=== PATIENT | female | born 1950 | race Caucasian/White ===

== ENCOUNTER 2021-02-08 00:46 | Emergency (ER) | payer OTHER, SELFPAY ==
[2021-02-08] VITALS (7 sets, daily range): BP systolic 118–131; BP diastolic 66–83; PULSE 76–90; RESP 12–16; TEMP 36.4–36.7; O2SAT 95–97
--- NOTE | ~2021-02-08 | XR_ITS ---
XR shoulder LT min 2V DATE: 02/08/2021 05:07 INDICATION: Left scapular and shoulder pain following seizure TECHNIQUE: 4 views COMPARISON: None FINDINGS: There is osteopenia. No fracture, dislocation, periosteal reaction or bone destruction. Nor mal alignment at the acromioclavicular and glenohumeral joints. IMPRESSION: No fracture or dislocation Reviewed, dictated and finalized at location A. IMPRESSION: No fracture or dislocation
[2021-02-08 00:54] LABS: Glucose Point of Care 129 (65-105)
--- NOTE | 2021-02-08 01:00 | ECG_ITS ---
Measurements Intervals [place] Rate: 80 P: 46 FL: 154 QRS: 39 QRSD: 92 T: 62 QT: 380 QTc: 440 Interpretive Statements SINUS RHYTHM INCOMPLETE RIGHT BUNDLE BRANCH BLOCK BORDERLINE ST-T WAVE ABNORMALITY- DIFFUSE LEADS BASELINE ARTIFACT- I, II, AVR, AVL, AVF, V4-V6 BORDERLINE ECG Electronically Signed On 02-08-2021 6:49:20 CDT by Derek Bee D.O.
--- NOTE | 2021-02-08 01:44 | PC.NURSE ---
Received call from pts boyfriend, Jadiel Lomeli (PH: [phone]), asking for update on pt. This RN informed him that we are waiting on results at this time, but I will call him back with updates.
[2021-02-08 01:52] LABS: Basophils Percent Auto 0.5 % (0.2-1.2); Immature Granulocyte Absolute 0.03 K/mm3 (0.00-0.031); Immature Granulocyte Percent A 0.7 % (0-0.5); Lymphocytes Absolute Auto 1.36 K/mm3 (0.9-3.2); Lymphocytes Percent Auto 32.8 % (18.3-44.2); Mean Corpuscular HGB Conc 33.3 g/dl (32-36); Mean Corpuscular Hemoglobin 30.6 pg (26-34); Mean Corpuscular Volume 91.7 fl (80-100); Mean Platelet Volume 10.7 fl (7.4-10.4); Monocytes Absolute Auto 0.2 K/mm3 (0.1-0.6); Monocytes Percent Auto 5.8 % (2.6-8.5); Neutrophils Absolute Auto 2.5 K/mm3 (1.3-6.7); Neutrophils Percent Auto 60.2 % (45.5-73.1); Platelet Count Result 165 k/mm3 (150-375); Red Blood Count 4.58 M/mm3 (4.2-5.4); Red Cell Distribution Width 11.9 % (11.5-14.5); White Blood Count 4.2 K/mm3 (4.5-10.0)
[2021-02-08 01:58] LABS: Albumin Level 4.6 g/dL (3.5-5.1); Alkaline Phosphatase 105 U/L (38-126); Anion Gap 15 mmol/L (8-16); Aspartate Amino Transferase 29 U/L (14-36); Bilirubin,Total 0.3 mg/dL (0.2-1.3); Blood Urea Nitrogen 16 mg/dL (7-17); Calcium 9.7 mg/dL (8.4-10.2); Carbon Dioxide 24 mmol/L (22-30); Chloride 100 mmol/L (98-107); Estimated Glomerular Filt Rate > 60; Glucose 137 mg/dL (65-105); Sodium 139 mmol/L (137-145)
[2021-02-08 02:05] LABS: Alanine Aminotransferase 22 U/L (4-35)
[2021-02-08 02:20] LABS: Add Urine Microscopic? YES; Appearance Urine Cloudy (Clear); Bilirubin Urine Negative (Negative); Blood Urine Negative (Negative); Color Urine Yellow (Yellow); Glucose Urine UA Negative (Negative); Hyaline Casts Urine 20-29 /lpf; Ketones Urine Trace mg/dL (Negative); Leukocyte Esterase Ur Negative LEU/UL (Negative); Mucus Urine Few /lpf; Nitrate Urine Negative (Negative); Protein Urine 2+ mg/dL (Negative); RBC Urine 0-2 /hpf (0-2); Specific Grav Ur 1.027 (1.001-1.035); Squamous Epithelial Cell Urine Occasional /hpf (Few); Urobilinogen Urine Negative mg/dL (<2.0); WBC Urine 0-3 /hpf
--- NOTE | 2021-02-08 02:21 | ED.GENADULT ---
HPI - General Adult General Chief complaint: Seizure Stated complaint: seizure Time Seen by Provider: 02/08/21 00:58 History of Present Illness HPI narrative: Patient is a 70-year-old female who presents the emergency department with chief complaint of seizure. The patient has history of seizures takes Klonopin and Tegretol for her seizures. The patient is in between physicians and has a new neurologist she is going to start seeing but has run out of her medications. The patient denied had a seizure at home and then has been confused post seizure. Related Data Home Medications Medication Instructions Recorded Confirmed carbamazepine 200 mg tablet 200 mg PO TID tablet 12/30/20 Allergies Allergy/AdvReac Type Severity Reaction Status Date / Time No Known Allergies Allergy Verified 02/08/21 04:46 Review of Systems Review of Systems: Narrative: A 10 system review of systems was completed on the patient and is negative except for what is stated in the HPI. Nursing and ancillary documentation was reviewed. [facility] Family History Family History Other Diabetes mellitus Family history of arthritis Family history of gout Family history of seizure disorder Hypertension Social History Social History Alcohol intake: never Exam Narrative: Exam Narrative: GENERAL: Well-appearing, well-nourished, and in no acute distress. HEAD: Normocephalic, atraumatic. EYES: PERRLA and EOMI. ENT: Nares clear, no rhinorrhea or epistaxis. Mucous membranes moist. NECK: Supple. CHEST: Clear to auscultation. No respiratory distress. HEART: Regular rate and rhythm. No murmur heard. Normal peripheral pulses. ABDOMEN: Soft, nontender, nondistended, normal active bowel sounds. EXTREMITIES: Normal range of motion. No edema. SKIN: Warm, dry, no rash. NEURO: No focal deficits. Alert and oriented x3. PSYCH: Normal mood and affect. Course Vital Signs Vital signs: Vital Signs Temperature 36.7 C 02/08/21 00:43 Pulse Rate 78 02/08/21 00:43 Respiratory Rate 16 02/08/21 00:43 Blood Pressure 131/74 02/08/21 00:43 Pulse Oximetry 95 02/08/21 00:43 Temperature 36.7 C 02/08/21 00:43 Pulse Rate 90 02/08/21 06:09 Respiratory Rate 12 02/08/21 06:09 Blood Pressure 118/83 02/08/21 06:09 Pulse Oximetry 97 02/08/21 06:09 Medical Decision Making Vital Signs Vital Signs: Vital Signs Temperature 36.7 C 02/08/21 00:43 Pulse Rate 78 02/08/21 00:43 Respiratory Rate 16 02/08/21 00:43 Blood Pressure 131/74 02/08/21 00:43 Pulse Oximetry 95 02/08/21 00:43 Temperature 36.7 C 02/08/21 00:43 Pulse Rate 90 02/08/21 06:09 Respiratory Rate 12 02/08/21 06:09 Blood Pressure 118/83 02/08/21 06:09 Pulse Oximetry 97 02/08/21 06:09 Lab Data Result diagrams: 02/08/21 01:31 02/08/21 01:31 Labs: Lab Results 02/08/21 02/08/21 02/08/21 Range/Units 00:51 01:31 01:31 WBC 4.2 L (4.5-10.0) K/mm3 RBC 4.58 (4.2-5.4) M/mm3 Hgb 14.0 (12.0-15.0) g/dL Hct 42.0 (37.0-47.0) % MCV 91.7 (80-100) fl MCH 30.6 (26-34) pg MCHC 33.3 (32-36) g/dl RDW 11.9 (11.5-14.5) % Plt Count 165 (150-375) k/mm3 MPV 10.7 H (7.4-10.4) fl Immature Gran % (Auto) 0.7 H (0-0.5) % Neut % (Auto) 60.2 (45.5-73.1) % Lymph % (Auto) 32.8 (18.3-44.2) % Loup % (Auto) 5.8 (2.6-8.5) % Eos % (Auto) 0.0 (0-4.4) % Baso % (Auto) 0.5 (0.2-1.2) % Lymph # (Auto) 1.36 (0.9-3.2) K/mm3 Loup # (Auto) 0.2 (0.1-0.6) K/mm3 Eos # (Auto) 0.0 (0-0.3) K/mm3 Baso # (Auto) 0.0 (0.0-0.1) K/mm3 Abs Immat Gran (auto) 0.03 (0.00-0.031) K/mm3 Absolute Neuts (auto) 2.5 (1.3-6.7) K/mm3 Absolute Nucleated RBC 0.0 (0.0-0.012) K/mm3 Nucleated RBC % 0.0 (0.0-0.2) % Sodium 139
--- NOTE | 2021-02-08 04:42 | PC.NURSE ---
Pt A&Ox4 at this time. Able to speak in full sentences, but speech is still slightly delayed. Pt c/o left shoulder pain and headache. BERNADINE Sky notified.
[2021-02-08] MEDS: carBAMazepine 200 MG TABLET PO (05:54)
[2021-02-08] MEDS: LORazepam (*CRX) 0.5 MG TABLET PO (06:06)
== END 2021-02-08 07:04 | disposition home or self-care (01) ==
PROVIDERS: Emergency Provider Emergency Medicine; PCP Internal Medicine Infectious Disease
DX: G40.909 Epilepsy, unspecified, not intractable, without status epilepticus (principal)
CPT/HCPCS: 36415; 51701; 73030; 80053; 81001; 82948; 85025; 93005; 96365; 99284; A9270; J0131

== ENCOUNTER 2021-02-09 18:55 | Emergency (ER) | payer OTHER, SELFPAY ==
--- NOTE | ~2021-02-09 | CT_ITS ---
EXAMINATION: CT abdomen pelvis w con INDICATION: Abdominal pain TECHNIQUE: Computed tomographic images of the abdomen and pelvis were obtained after the administrati on of 100 cc of Omnipaque 350 intravenous contrast. The dose-length product (DLP) was 331.20 mGy-cm. Automated exposure control and iterative reconstruction technique were employed. COMPARISON: None available FINDINGS: Minimal dependent atelectasis is present in the lung bases. The heart size is normal. The g allbladder is surgically absent. Punctate calcifications in an otherwise normal spleen likely represe nt healed granulomatous disease. The liver, pancreas, and adrenal glands are normal. The kidneys are unremarkable. No pathologically enlarged abdominal or pelvic lymph nodes are identified. There is no free intraperitoneal gas or evidence of bowel obstruction. There is mild lumbar spondylosis. There is a fat-containing umbilical hernia. IMPRESSION: 1. No CT correlate for the patient's symptoms. Reviewed, dictated and finalized at location A.
[2021-02-09 19:02] VITALS: BP 123/79; PULSE 115; RESP 20; TEMP 36.4; O2SAT 96
[2021-02-09 19:30] LABS: Basophils Percent Auto 0.4 % (0.2-1.2); Eosinophils Absolute Auto 0.2 K/mm3 (0-0.3); Eosinophils Percent Auto 2.6 % (0-4.4); Hemoglobin 14.5 g/dL (12.0-15.0); Immature Granulocyte Absolute 0.02 K/mm3 (0.00-0.031); Immature Granulocyte Percent A 0.3 % (0-0.5); Lymphocytes Absolute Auto 1.03 K/mm3 (0.9-3.2); Mean Corpuscular HGB Conc 34.5 g/dl (32-36); Mean Corpuscular Hemoglobin 30.8 pg (26-34); Mean Corpuscular Volume 89.2 fl (80-100); Monocytes Absolute Auto 0.4 K/mm3 (0.1-0.6); Monocytes Percent Auto 5.7 % (2.6-8.5); Neutrophils Absolute Auto 5.2 K/mm3 (1.3-6.7); Platelet Count Result 202 k/mm3 (150-375); Red Blood Count 4.71 M/mm3 (4.2-5.4); Red Cell Distribution Width 11.7 % (11.5-14.5); White Blood Count 6.9 K/mm3 (4.5-10.0)
[2021-02-09 19:42] LABS: Alanine Aminotransferase 20 U/L (4-35); Albumin Level 4.8 g/dL (3.5-5.1); Alkaline Phosphatase 101 U/L (38-126); Anion Gap 18 mmol/L (8-16); Aspartate Amino Transferase 31 U/L (14-36); Bilirubin,Total 0.7 mg/dL (0.2-1.3); Blood Urea Nitrogen 13 mg/dL (7-17); Calcium 9.6 mg/dL (8.4-10.2); Carbon Dioxide 24 mmol/L (22-30); Chloride 94 mmol/L (98-107); Estimated CRCL calculation 60 ml/min; Estimated Glomerular Filt Rate > 60; Glucose 106 mg/dL (65-105); Lipase 46 U/L (23-300); Potassium 3.1 mmol/L (3.4-5.0); Sodium 136 mmol/L (137-145)
[2021-02-09 21:35] VITALS: BP 140/76; PULSE 90; RESP 18; TEMP 36.9; O2SAT 97
[2021-02-09 21:44] LABS: Add Urine Microscopic? YES; Appearance Urine Clear (Clear); Bilirubin Urine Negative (Negative); Blood Urine Negative (Negative); Color Urine Yellow (Yellow); Glucose Urine UA Negative (Negative); Ketones Urine 2+ mg/dL (Negative); Leukocyte Esterase Ur Negative LEU/UL (Negative); Mucus Urine Rare /lpf; Nitrate Urine Negative (Negative); Protein Urine 2+ mg/dL (Negative); RBC Urine 0-2 /hpf (0-2); Specific Grav Ur 1.023 (1.001-1.035); Squamous Epithelial Cell Urine Rare /hpf (Few); Transitional Epi Cells Urine Rare /hpf (None Seen); Urobilinogen Urine Negative mg/dL (<2.0); WBC Urine 0-3 /hpf
[2021-02-09] MEDS: SODIUM CHLORIDE 0.9% IV 1,000 ML 999 ML IV CONT (21:54)
[2021-02-09] MEDS: ONDANSETRON INJ 4 MG/2 ML VIAL IV PUSH (21:55)
[2021-02-09] MEDS: LORazepam INJ (*CRX) 2 MG/ML VIAL 1 MG IV PUSH (21:55)
[2021-02-09 22:00] VITALS: BP 118/78; PULSE 82; RESP 16; TEMP 36.6; O2SAT 100
[2021-02-09 23:32] VITALS: BP 120/78; BP 122/82; PULSE 80
[2021-02-09 23:33] VITALS: BP 126/80; PULSE 78
[2021-02-09] MEDS: diphenhydrAMINE HCl INJ 50 MG/ML VIAL 25 MG IV PUSH (23:40)
[2021-02-09] MEDS: METOCLOPRAMIDE HCL INJ 10 MG/2 ML VIAL IV PUSH (23:40)
[2021-02-09 23:46] VITALS: BP 126/79; PULSE 68; RESP 18; O2SAT 99
--- NOTE | 2021-02-09 23:56 | ED.GENADULT ---
HPI - General Adult General Chief complaint: Nausea/Vomiting/Diarrhea Stated complaint: unable to eat Time Seen by Provider: 02/09/21 21:14 History of Present Illness HPI narrative: Patient 70-year-old female presents the emergency department chief complaint of abdominal pain nausea vomiting. Patient states she was recently in the emergency department after she had multiple seizures which she had not been taking her benzodiazepine and Tegretol. Patient states that since she has been home she has had multiple episodes of nausea and vomiting is not really been keeping fluids down and not keeping her clonazepam down. Patient states she feels somewhat shaky the patient denies fever or chills Related Data Home Medications Medication Instructions Recorded Confirmed carbamazepine 200 mg tablet 200 mg PO TID tablet 12/30/20 Allergies Allergy/AdvReac Type Severity Reaction Status Date / Time No Known Allergies Allergy Verified 02/08/21 04:46 Review of Systems Review of Systems: Narrative: A 10 system review of systems was completed on the patient and is negative except for what is stated in the HPI. Nursing and ancillary documentation was reviewed. PMFSH Family History Family History Other Diabetes mellitus Family history of arthritis Family history of gout Family history of seizure disorder Hypertension Social History Social History Alcohol intake: never Gender identity (if verbalized by the patient): Female Exam Narrative: Exam Narrative: GENERAL: Well-appearing, well-nourished, and in no acute distress. HEAD: Normocephalic, atraumatic. EYES: PERRLA and EOMI. ENT: Nares clear, no rhinorrhea or epistaxis. Mucous membranes moist. NECK: Supple. CHEST: Clear to auscultation. No respiratory distress. HEART: Regular rate and rhythm. No murmur heard. Normal peripheral pulses. ABDOMEN: Soft, nontender, nondistended, normal active bowel sounds. EXTREMITIES: Normal range of motion. No edema. SKIN: Warm, dry, no rash. NEURO: No focal deficits. Alert and oriented x3. PSYCH: Normal mood and affect. Course Course Emergency Course: Patient received IV fluids antiemetics and benzodiazepines in the emergency department. Laboratory studies were within normal limits CT scan of the abdomen showed evidence of acute abnormalities. After hydration and antiemetics patient is able to tolerate p.o. intake Vital Signs Vital signs: Vital Signs Temperature 36.4 C 02/09/21 19:02 Pulse Rate 115 H 02/09/21 19:02 Respiratory Rate 20 02/09/21 19:02 Blood Pressure 123/79 02/09/21 19:02 Pulse Oximetry 96 02/09/21 19:02 Temperature 36.6 C 02/09/21 22:00 Pulse Rate 68 02/09/21 23:46 Respiratory Rate 18 02/09/21 23:46 Blood Pressure 126/79 02/09/21 23:46 Pulse Oximetry 99 02/09/21 23:46 Medical Decision Making Vital Signs Vital Signs: Vital Signs Temperature 36.4 C 02/09/21 19:02 Pulse Rate 115 H 02/09/21 19:02 Respiratory Rate 20 02/09/21 19:02 Blood Pressure 123/79 02/09/21 19:02 Pulse Oximetry 96 02/09/21 19:02 Temperature 36.6 C 02/09/21 22:00 Pulse Rate 68 02/09/21 23:46 Respiratory Rate 18 02/09/21 23:46 Blood Pressure 126/79 02/09/21 23:46 Pulse Oximetry 99 02/09/21 23:46 Lab Data Result diagrams: 02/09/21 19:10 02/09/21 19:10 Labs: Lab Results 02/09/21 02/09/21 02/09/21 Range/Units 19:10 19:10 21:29 WBC 6.9 (4.5-10.0) K/mm3 RBC 4.71 (4.2-5.4) M/mm3 Hgb 14.5 (12.0-15.0) g/dL Hct 42.0 (37.0-47.0) % MCV 89.2 (80-100) fl MCH 30.8 (26-34) pg MCHC 34.5 (32-36) g/dl RDW 11.7 (11.5-14.5) % Plt Count 202 (150-375) k/mm3 MPV 10.0 (7.4-10.4) fl Immature Gran % (Auto) 0.3 (0-0.5) % Neut % (Auto) 76.0 H (45.5-73.1) % Lymp
== END 2021-02-10 00:04 | disposition home or self-care (01) ==
PROVIDERS: Emergency Medicine; Emergency Provider Emergency Medicine; PCP Internal Medicine Infectious Disease
DX: R11.2 Nausea with vomiting, unspecified (principal)
CPT/HCPCS: 36415; 74177; 80053; 81001; 83690; 85025; 96361; 96365; 96375; 99284; J0131; J1200; J2060; J2405; J2765; J7030; Q9967

== ENCOUNTER 2021-03-17 15:51 | Emergency (ER) | payer OTHER, SELFPAY ==
[2021-03-17] VITALS (16 sets, daily range): BP systolic 107–136; BP diastolic 64–77; PULSE 58–77; RESP 14–19; TEMP 36.8; O2SAT 94–100
--- NOTE | ~2021-03-17 | CT_ITS ---
EXAMINATION: CTA chest PE protocol DATE: 03/17/2021 18:21 INDICATION: Congestive heart failure. Left lower limb deep vein thrombosis. TECHNIQUE: Computed tomography angiography (CTA) of the chest was performed with 100 mL Omnipaque-350 intravenous contrast timed to evaluate the pulmonary arteries. Coronal maximum intensity projection 3D-reconstructions were created by the technologist. Automated exposure control and iterative reconst ruction technique were employed. The dose-length product was 454.19 mGy-cm. COMPARISON: CT abdomen and pelvis 02/09/2021 FINDINGS: The lungs demonstrate minimal atelectasis. Calcified right hilar lymph nodes are consistent with old granulomatous disease. No pleural effusion. The heart size is normal. No pericardial effusi on. There are coronary artery calcifications. There is no pulmonary embolus. There are changes of cho lecystectomy. Calcifications in the liver and spleen are consistent with old granulomatous disease. T here is mild thoracic spondylosis. IMPRESSION: 1. No pulmonary embolus. Reviewed, dictated and finalized at location A. IMPRESSION: 1. No pulmonary embolus.
--- NOTE | ~2021-03-17 | US_ITS ---
EXAMINATION: US venous doppler [facility] DATE: 03/17/2021 16:45 INDICATION: Left lower limb pain. TECHNIQUE: Grayscale ultrasound images without and with compression and Doppler ultrasound images of the left lower extremity veins were obtained. COMPARISON: None. FINDINGS: There is thrombus in the left common femoral vein, profunda (deep) femoral vein, femoral vein, poplit eal vein, peroneal veins, posterior tibial veins, and greater saphenous vein outflow. IMPRESSION: 1. Extensive deep venous thrombosis in left lower limb. I called this result to Henrietta Mcgowan. Reviewed, dictated and finalized at location A. IMPRESSION: 1. Extensive deep venous thrombosis in left lower limb. I called this result t o Henrietta Mcgowan.
--- NOTE | 2021-03-17 16:36 | ED.LOWEXIN ---
HPI - Extremity Injury (Lower) General Chief Complaint: Extremity Injury, Lower <Henrietta Mcgowan PA-C - Last Filed: 03/17/21 22:12> Stated Complaint: L Leg Swelling x 3 weeks <SOLOMON Ricketts Last Filed: 03/17/21 22:12> Time Seen by Provider: 03/17/21 16:26 <Henrietta Mcgowan PA-C - Last Filed: 03/17/21 22:12> Source: patient <SOLOMON Ricketts Last Filed: 03/17/21 22:12> Mode of arrival: wheelchair <SOLOMON Ricketts Last Filed: 03/17/21 22:12> Limitations: no limitations <Henrietta Mcgowan PA-C - Last Filed: 03/17/21 22:12> History of Present Illness HPI Narrative: This is a 70-year-old female that presents to the emergency department for left leg swelling x3 weeks. Reports pain in the calf and upper leg. No recent injuries or trauma. No recent travel or surgery. She has never had a blood clot before. She has not been seen for this complaint yet. Denies fever, chest pain, shortness of breath, erythema, or numbness. <Henrietta Mcgowan PA-C - Last Filed: 03/17/21 22:12> Related Data Home Medications: Home Medications Medication Instructions Recorded Confirmed carbamazepine 200 mg tablet 200 mg PO TID tablet 12/30/20 calcium carbonate-vitamin D3 tablet PO 03/17/21 hydrochlorothiazide 03/17/21 metoprolol tartrate 03/17/21 potassium chloride meq PO 03/17/21 sertraline mg 03/17/21 <Henrietta Mcgowan PA-C - Last Filed: 03/17/21 22:12> Allergies/Adverse Reactions: Allergies Allergy/AdvReac Type Severity Reaction Status Date / Time No Known Allergies Allergy Verified 03/17/21 17:06 <SOLOMON Ricketts Last Filed: 03/17/21 22:12> Review of Systems Review of Systems: Narrative: CONSTITUTIONAL: Denies fever CARDIOVASCULAR: Reports edema. Denies chest pain RESPIRATORY: Denies dyspnea. NEUROLOGIC: Denies numbness, or weakness. <Henrietta Mcgowan PA-C - Last Filed: 03/17/21 22:12> All systems reviewed & are unremarkable except as noted in HPI and below <Henrietta Mcgowan PA-C - Last Filed: 03/17/21 22:12> [facility] Past Medical History Medical History: Medical History (Updated 03/17/21 @ 22:06 by Henrietta Mcgowan PA-C) History of epilepsy <Henrietta Mcgowan PA-C - Last Filed: 03/17/21 22:12> Family History Family History: Family History Other Diabetes mellitus Family history of arthritis Family history of gout Family history of seizure disorder Hypertension <Henrietta Mcgowan PA-C - Last Filed: 03/17/21 22:12> Social History Social History: Social History (Updated 03/17/21 @ 16:38 by Henrietta Mcgowan PA-C) Alcohol intake: never Substance use: never Gender identity (if verbalized by the patient): Female <Henrietta Mcgowan PA-C - Last Filed: 03/17/21 22:12> Exam Narrative: Exam Narrative: GENERAL: Well-appearing, well-nourished, and in no acute distress. HEAD: Normocephalic, atraumatic. EYES: EOMI. CHEST: Clear to auscultation. No respiratory distress. No wheezes rales or rhonchi HEART: Regular rate and rhythm. No murmur heard. Normal peripheral pulses. EXTREMITIES: Normal range of motion. Moderate nonpitting edema of the left lower extremity. Normal DP pulses. Normal sensation SKIN: Warm, dry, no rash. NEURO: No focal deficits. Alert and oriented x3. PSYCH: Normal mood and affect <Henrietta Mcgowan PA-C - Last Filed: 03/17/21 22:12> Course SUPERVISOR MODEL MAKING/PA Physician Supervision For this patient encounter, I reviewed the SUPERVISOR MODEL MAKING or PA documentation, treatment plan, and medical decision making; and I had [id number] time with this patient. Patient complains of left leg swelling. Exam reveals leg swelling. Plan admit or transfer and start anticoagulation. <Reba Fish MD - Last Filed: 03/17/21 20:06> Vital Signs Vital signs: Vital Signs Temperature 98.2 F 03/17/21 16:15 Pulse Rate 77 03/17/21 16:15 Respiratory
[2021-03-17 17:34] LABS: Basophils Percent Auto 0.7 % (0.2-1.2); Hematocrit 34.9 % (37.0-47.0); Hemoglobin 12.1 g/dL (12.0-15.0); Immature Granulocyte Absolute 0.01 K/mm3 (0.00-0.031); Immature Granulocyte Percent A 0.3 % (0-0.5); Lymphocytes Percent Auto 23.6 % (18.3-44.2); Mean Corpuscular HGB Conc 34.7 g/dl (32-36); Mean Corpuscular Hemoglobin 30.6 pg (26-34); Mean Corpuscular Volume 88.1 fl (80-100); Mean Platelet Volume 9.7 fl (7.4-10.4); Monocytes Absolute Auto 0.3 K/mm3 (0.1-0.6); Monocytes Percent Auto 9.4 % (2.6-8.5); Platelet Count Result 236 k/mm3 (150-375); Red Blood Count 3.96 M/mm3 (4.2-5.4); Red Cell Distribution Width 12.1 % (11.5-14.5)
[2021-03-17 17:46] LABS: Prothrombin Time 13.4 Seconds (11.1-14.7)
[2021-03-17 17:47] LABS: Anion Gap 8 mmol/L (8-16); Blood Urea Nitrogen 8 mg/dL (7-17); Calcium 8.7 mg/dL (8.4-10.2); Carbon Dioxide 28 mmol/L (22-30); Chloride 88 mmol/L (98-107); Estimated CRCL calculation 66 ml/min; Estimated Glomerular Filt Rate > 60; Glucose 101 mg/dL (65-105); Partial Thromboplastin Time 23.5 SECONDS (22.3-36.8); Potassium 3.3 mmol/L (3.4-5.0); Sodium 124 mmol/L (137-145)
[2021-03-17 17:56] LABS: NT Pro B Type Natriuretic Pept 427 pg/mL (5-100)
[2021-03-17] MEDS: HEPARIN SOD/D5W 100 UNITS/ML 25,000 UNITS/250 ML BAG 11 UNITS IV CONT (18:36)
[2021-03-17] MEDS: HEPARIN SODIUM 5,000 UNITS/ML VIAL 4500 UNITS IV PUSH (18:36)
--- NOTE | 2021-03-17 19:48 | PC.NURSE ---
Faxed face sheet to [facility] at this time
[2021-03-17] MEDS: HYDROcodone/acetaminophen (*CRX) 5-325 MG TABLET 1 TAB PO (21:09)
--- NOTE | 2021-03-17 21:45 | PC.NURSE ---
called [facility] to request transport. ETA [phone]
--- NOTE | 2021-03-17 22:12 | PC.NURSE ---
Pt sister Agnieszka leaves phone number for staff to update. [phone]
[2021-03-17] MEDS: POTASSIUM CHLORIDE 20 MEQ TABLET PO (22:15)
--- NOTE | 2021-03-17 23:03 | PC.NURSE ---
called [facility] for ETA update. ETA [phone] pending and 911 calls.
--- NOTE | 2021-03-17 23:33 | PC.NURSE ---
called [facility] for ETA update. ETA [phone]
[2021-03-18 00:15] VITALS: BP 101/65; PULSE 61; RESP 16; O2SAT 97
--- NOTE | 2021-03-18 00:24 | PC.NURSE ---
called [facility] for ETA update. ETA [phone] Called [facility] to request transport. No transfer truck tonight.
[2021-03-18 00:27] LABS: Basophils Percent Auto 0.6 % (0.2-1.2); Hematocrit 31.6 % (37.0-47.0); Immature Granulocyte Absolute 0.02 K/mm3 (0.00-0.031); Immature Granulocyte Percent A 0.6 % (0-0.5); Lymphocytes Absolute Auto 1.19 K/mm3 (0.9-3.2); Lymphocytes Percent Auto 32.9 % (18.3-44.2); Mean Corpuscular HGB Conc 34.8 g/dl (32-36); Mean Corpuscular Hemoglobin 30.7 pg (26-34); Mean Corpuscular Volume 88.3 fl (80-100); Mean Platelet Volume 9.3 fl (7.4-10.4); Monocytes Absolute Auto 0.3 K/mm3 (0.1-0.6); Monocytes Percent Auto 7.2 % (2.6-8.5); Neutrophils Absolute Auto 2.1 K/mm3 (1.3-6.7); Neutrophils Percent Auto 58.7 % (45.5-73.1); Platelet Count Result 199 k/mm3 (150-375); Red Blood Count 3.58 M/mm3 (4.2-5.4); Red Cell Distribution Width 12.2 % (11.5-14.5); White Blood Count 3.6 K/mm3 (4.5-10.0)
--- NOTE | 2021-03-18 00:37 | PC.NURSE ---
called [facility] for request transport. Accepted - ETA drive time from [place].
[2021-03-18 00:42] LABS: Prothrombin Time 14.2 Seconds (11.1-14.7)
[2021-03-18 00:45] LABS: Partial Thromboplastin Time 128.4 SECONDS (22.3-36.8)
--- NOTE | 2021-03-18 00:46 | PC.NURSE ---
cancelled [facility].
[2021-03-18 01:13] VITALS: BP 120/69; PULSE 64; RESP 16; O2SAT 97
--- NOTE | 2021-03-18 01:40 | PC.NURSE ---
Spoke with family member, Agnieszka, on the phone last night about picking up wheelchair. States nobody is available to pick it up from the hospital until morning and would prefer it goes with pt in the ambulance due to inability to drive at night. Family member made aware of risks of transporting equipment with pt. Pt and family member would like to continue with transporting wheelchair, EMS made aware.
== END 2021-03-18 01:40 | disposition short-term general hospital (02) ==
PROVIDERS: Physician Assistant; Emergency Provider Emergency Medicine; PCP Internal Medicine Infectious Disease
DX: I82.412 Acute embolism and thrombosis of left femoral vein (principal); I82.432 Acute embolism and thrombosis of left popliteal vein; I82.452 Acute embolism and thrombosis of left peroneal vein; I82.442 Acute embolism and thrombosis of left tibial vein; I82.492 Acute embolism and thrombosis of other specified deep vein of left lower extremity; G40.909 Epilepsy, unspecified, not intractable, without status epilepticus
CPT/HCPCS: 36415; 71275; 80048; 83880; 85025; 85610; 85730; 93971; 96365; 96366; 99285; A9270; J1644; Q9967

== ENCOUNTER 2022-05-25 15:19 | Outpatient (CLI) | payer OTHER, SELFPAY ==
--- NOTE | ~2022-05-25 | MM_ITS ---
EXAMINATION: MM screening yari BI w deb HISTORY: Screening mammogram TECHNIQUE: Craniocaudal and mediolateral oblique 3-D tomosynthesis images were obtained and synthetic 2-D images were generated. CAD analysis was submitted and interpreted. COMPARISON: No prior mammogram is available for comparison at this institution. BREAST PARENCHYMAL COMPOSITION: There are scattered areas of fibroglandular density. FINDINGS: There is no suspicious mass, calcification, or architectural distortion to suggest malignan cy in either breast. IMPRESSION: 1. No mammographic evidence of malignancy. 2. Recommend routine screening mammography in one year. BI-RADS Category 1: Negative Reviewed, dictated and finalized at location A.
== END 2022-05-25 15:20 | disposition home or self-care (01) ==
PROVIDERS: PCP Internal Medicine Infectious Disease; Visit Provider Internal Medicine Infectious Disease
DX: Z12.31 Encounter for screening mammogram for malignant neoplasm of breast (principal)
CPT/HCPCS: 77063; 77067

== ENCOUNTER 2022-10-22 13:21 | Outpatient (CLI) | payer OTHER, SELFPAY ==
--- NOTE | ~2022-10-22 | DEXA_ITS ---
Bone Density Report Name: LAURYN SHELL Age: 71 Sex: Female Ethnicity: White Date of : 1950 Indication: postmenopausal; screening for osteoporosis; seizure disorder; hysterectomy; Referring Provider: ASIA, THELMA Study: Bone densitometry was performed. Exam Date: October 22, 2022 Accession number: [id number] Bone Density: Region BMD T-score Z-score Classification AP Spine(L1-L4) 0.890 -1.4 0.7 Osteopenia Femoral Neck (Left) 0.600 -2.2 -0.5 Osteopenia Total Hip (Left) 0.742 -1.6 -0.1 Osteopenia Femoral Neck (Right) 0.648 -1.8 0.0 Osteopenia Total Hip (Right) 0.798 -1.2 0.3 Osteopenia Total Hip Mean 0.770 -1.4 0.1 Osteopenia World Health Organization criteria for BMD impression classify patients as: Normal (T-score at or above -1.0), Osteopenia (T-score between -1.0 and -2.5), or Osteoporosis (T-score at or below -2.5). 10-year Fracture Risk: FRAX not reported because: Treated for osteoporosis Clinical Information Provided by Patient: Is being treated for osteoporosis Has used the following medications: Vitamin D, Calcium Has the following medical conditions: Any Seizure Disorders, Hysterectomy Patient maximum height was 63.5 Menopause Age: 47 Onset of menses at age 16 Number of children 2 Impression: The patient has low bone mass, based on the Left Femoral Neck T-score. Discussion: It is important to ask patients whether they are taking their medications and to encourage continued and appropriate compliance with their osteoporosis therapies to reduce fracture risk. It is also important to review their risk factors and encourage appropriate calcium and vitamin D intakes, exercise, fall prevention and other lifestyle measures. Follow-Up: Consider a repeat BMD and Vertebral Fracture Assessment (VFA) exam in 2 years or sooner if medically necessary, to reassess this patient's status. Reported by: JAMESON on 10/22/2022 1:46:00 PM. Reviewed, dictated and finalized at location AMary CISNEROS
== END 2022-10-22 13:22 | disposition home or self-care (01) ==
LOC: ANHIMG 13:22
PROVIDERS: PCP Internal Medicine Infectious Disease; Visit Provider Internal Medicine Infectious Disease
DX: Z78.0 Asymptomatic menopausal state (principal); M85.88 Other specified disorders of bone density and structure, other site; M85.852 Other specified disorders of bone density and structure, left thigh; M85.851 Other specified disorders of bone density and structure, right thigh
CPT/HCPCS: 77080

== ENCOUNTER 2022-12-21 12:15 | Outpatient (CLI) | payer OTHER, SELFPAY ==
--- NOTE | ~2022-12-21 | US_ITS ---
EXAMINATION: US carotid duplex BI DATE: 12/21/2022 15:02 INDICATION: Syncope. TECHNIQUE: Grayscale, color Doppler, and pulsed Doppler images of the cervical carotid arteries were obtained. The degree of vessel stenosis is placed in one of the following categories: normal, <50%, 5 0-69%, >=70% but less than near-occlusion, near-occlusion, or total occlusion. Note that percent sten osis relative to normal distal artery lumen diameter is indirectly measured from velocity measurement s as described by Rich, et al. Radiology 2003; 229:340-346. Notes: Normal: Peak systolic velocity <125 centimeters/sec and no plaque <50%. Peak systolic velocity <125 ( EDV <40; ICA/CCA PSV ratio <2.0; used these factors only a tandem lesions or low cardiac output or co ntralateral disease) 50-69 %: PSV 125-230 (EDV 40-100; ratio 2-4) >= 70% but less than near occlusion: PSV greater than 230 (EDV > 100; ratio> 4.0) Near Occlusion: PSV that is variable; markedly narrowed lumen Occlusion: Absent flow on color/spectral Doppler and no lumen on soto scale. COMPARISON: None. FINDINGS: RIGHT: The right common carotid artery (CCA) peak systolic velocity (PSV) is 70 cm/s. The right internal car otid artery (ICA) PSV is 107 cm/s. The right ICA end-diastolic velocity (EDV) is 35 cm/s. The right I CA/CCA PSV ratio is 1.5. The external carotid artery (ECA) PSV is 51 cm/s. There is antegrade flow in the right vertebral artery. LEFT: The left CCA PSV is 73 cm/s. The left ICA PSV is 82 cm/s. The left ICA EDV is 30 cm/s. The left ICA/C CA PSV ratio is 1.1. The ECA PSV is 65 cm/s. There is antegrade flow in the left vertebral artery. IMPRESSION: 1. Less than 50% stenosis in the right internal carotid artery by sonographic criteria. 2. Less than 50% stenosis in the left internal carotid artery by sonographic criteria. Reviewed, dictated and finalized at location A. IMPRESSION: 1. Less than 50% stenosis in the right internal carotid artery by sonographic sarah hay. 2. Less than 50% stenosis in the left internal carotid artery by sonographic shailesh terrell.
--- NOTE | 2022-12-21 12:38 | ECG_ITS ---
Measurements Intervals [place] Rate: 81 P: 52 AL: 156 QRS: 49 QRSD: 86 T: 52 QT: 366 QTc: 427 Interpretive Statements SINUS RHYTHM INCOMPLETE RIGHT BUNDLE BRANCH BLOCK BORDERLINE ST-T WAVE ABNORMALITY- ANT/HIGH LAT LEADS BASELINE ARTIFACT- I, II, III, AVR, AVL, V1 BORDERLINE ECG COMPARED TO ECG 02/08/2021 00:54:08 NO SIGNIFICANT CHANGES Electronically Signed On 12-21-2022 12:52:00 CDT by Derek Bee D.O.
== END 2022-12-21 12:16 | disposition home or self-care (01) ==
LOC: ANHNEURO 12:16
PROVIDERS: PCP Internal Medicine Infectious Disease; Visit Provider Student in an Organized Health Care Education/Training Program
DX: R06.02 Shortness of breath (principal); R55 Syncope and collapse; I65.23 Occlusion and stenosis of bilateral carotid arteries; I45.10 Unspecified right bundle-branch block
CPT/HCPCS: 93005; 93880; 95816

== ENCOUNTER 2023-11-15 15:09 | Emergency (ER) | payer OTHER, SELFPAY ==
--- NOTE | ~2023-11-15 | XR_ITS ---
EXAMINATION: XR chest 1V portable DATE: 11/15/2023 21:11 INDICATION: Upper respiratory infection. TECHNIQUE: A single frontal view of the chest was obtained. COMPARISON: Chest CT 03/17/2021 FINDINGS: There is no pneumonia, pleural effusion, or pneumothorax. The heart size is normal. There a re changes of cholecystectomy. IMPRESSION: 1. No acute cardiopulmonary disease. Reviewed, dictated and finalized at location E. NGUAL ACCOUNT MANAGER
--- NOTE | ~2023-11-15 | CT_ITS ---
EXAMINATION: CT brain wo con DATE: 11/15/2023 21:25 INDICATION: Headache. TECHNIQUE: Computed tomography (CT) of the head was performed without intravenous contrast. The mA wa s adjusted according to patient size. Iterative reconstruction technique was employed. The dose-lengt h product was 605.33 mGy-cm. COMPARISON: None FINDINGS: There are scattered areas of low attenuation in the cerebral white matter. There is no intr acranial hemorrhage, acute infarction, or abnormal intracranial mass lesion. The ventricles are hollie l in size. There are likely changes of ocular lens replacement surgeries. There is mild mucosal thick ening in the ethmoid sinuses. There is a trace right mastoid effusion. IMPRESSION: 1. Moderate nonspecific cerebral white matter disease, which likely represents chronic small vessel i schemic disease. Reviewed, dictated and finalized at location E. HING OPERATOR IMPRESSION: 1. Moderate nonspecific cerebral white matter disease, which likely represents chronic small vessel ischemic disease.
[2023-11-15 15:11] VITALS: PULSE 103; RESP 16; TEMP 36.7; O2SAT 95
[2023-11-15 15:50] LABS: Strep Group A RT-PCR NOT DETECTED (Negative)
[2023-11-15 16:00] LABS: Influenza A QL RT-PCR Negative (Negative); Influenza B QL RT-PCR Negative (Negative); RSV RNA, RT-PCR Negative (Negative); SARS-CoV-2 RNA PCR Negative (Negative)
[2023-11-15 19:31] VITALS: PULSE 103; RESP 16; TEMP 36.7; O2SAT 95
--- NOTE | 2023-11-15 21:11 | ED.GENADULT ---
HPI - General Adult General Chief complaint: Upper Respiratory Infection Stated complaint: sore throat, headache URI s/s Time Seen by Provider: 11/15/23 19:53 History of Present Illness HPI narrative: 72-year-old female presenting to the emergency department for evaluation of sore throat. Patient states she did begin having viral symptoms which she suspected was influenza in September and the symptoms improved. Patient reports over the course of last week symptoms did worsen again. Patient does report generalized body aches sore throat and intermittent headaches. Patient has been taking Tylenol for pain control but has not been taking ibuprofen. Related Data Home Medications Medication Instructions Recorded Confirmed calcium carbonate 600 mg-vitamin tablet PO 03/17/21 07/29/21 D3 10 mcg (400 unit) tablet metoprolol tartrate 50 mg tablet 03/17/21 07/29/21 potassium chloride 20 mEq meq PO 03/17/21 07/29/21 tablet,extended release(part/cryst) sertraline 50 mg tablet mg 03/17/21 07/29/21 Allergies Allergy/AdvReac Type Severity Reaction Status Date / Time No Known Allergies Allergy Verified 11/15/23 19:33 Review of Systems Review of Systems: All systems reviewed & are unremarkable except as noted in HPI and below PMFSH Past Medical History Medical History History of epilepsy Thrombosis Family History Family History Other Diabetes mellitus Family history of arthritis Family history of gout Family history of seizure disorder Hypertension Social History Social History Smoking status: Never smoker Alcohol intake: never Substance use: never Lack of Transportation: No Lack of Food: Often True Current Housing: Decline to Answer Concerned About Future Housing: No Difficulty Paying Gas/Electric Bills: YES Difficulty Paying for Meds: No Currently Unemployed: No Education: Grade School Difficulty w/ Childcare or Family Care: No Gender identity (if verbalized by the patient): Female Exam Narrative: APPEARANCE: Well appearing, no pain, no distress, well-nourished. HEAD: normocephalic, atraumatic. EYES: PERRLA/EOMI, conjunctivae clear. NOSE: Normal no drainage EARS:TMS clear with good light reflex. THROAT: Pharynx clear, no exudate. NECK: Supple. No adenopathy, no masses. RESPIRATORY: Airway patent, respirations nonlabored. Clear to auscultation bilaterally, no rales, rhonchi, wheezing. CARDIOVASCULAR: Regular rate and rhythm without murmurs rubs or gallops. ABDOMINAL: Soft, nontender, nondistended, normal bowel sounds MUSCULOSKELETAL: Moves all extremities. Strength/ROM intact, No edema, No calf tenderness. NEURO: Alert. Cranial nerves II through XII intact. SKIN: Warm, dry. Normal Color Course Course Emergency Course: 72-year-old female present to the for evaluation pharyngitis/pharyngitis. Patient was negative for influenza RSV and COVID. Patient's strep was negative. Chest x-ray showed no acute abnormality. Patient was treated with an albuterol inhaler due to increased sputum production and shortness of breath. Patient was updated on the results of her workup patient was comfortable with plan for discharge and close follow-up. Suspect resolving viral etiologies and lying cause of patient's symptoms. Vital Signs Vital signs: Vital Signs Temperature 98.1 F 11/15/23 15:11 Pulse Rate 103 H 11/15/23 15:11 Respiratory Rate 16 11/15/23 15:11 Pulse Oximetry 95 11/15/23 15:11 Oxygen Delivery Room Air 11/15/23 15:11 Temperature 98.1 F 11/15/23 19:31 Pulse Rate 114 H 11/15/23 21:30 Respiratory Rate 20 11/15/23 21:30 Pulse Oximetry 95 11/15/23 19:31 Oxygen Delivery Room Air 11/15/23 15:11 Medical Decision Making Vital Signs Vital Signs: Vital Signs Temperature 98.1
[2023-11-15 21:20] VITALS: PULSE 118; RESP 20
[2023-11-15] MEDS: ALBUTEROL SULFATE NEB 2.5 MG/3 ML INH INHALATION (21:20)
[2023-11-15 21:30] VITALS: PULSE 114; RESP 20
== END 2023-11-15 22:15 | disposition home or self-care (01) ==
PROVIDERS: Family Medicine; Emergency Provider Emergency Medicine; PCP Internal Medicine Infectious Disease
DX: J04.0 Acute laryngitis (principal); B34.9 Viral infection, unspecified; R51.9 Headache, unspecified; Z20.822 Contact with and (suspected) exposure to COVID-19; G40.909 Epilepsy, unspecified, not intractable, without status epilepticus
CPT/HCPCS: 70450; 71045; 87637; 87651; 94640; 99284

== ENCOUNTER 2024-05-30 12:12 | Emergency (ER) | payer OTHER, SELFPAY ==
[2024-05-30 12:13] VITALS: BP 144/90; PULSE 84; RESP 16; TEMP 36.6; O2SAT 97
--- NOTE | 2024-05-30 12:27 | ED.GENADULT ---
HPI - General Adult General Chief complaint: Recheck/Abnormal Lab/Rx Stated complaint: out of seizure meds Time Seen by Provider: 05/30/24 12:17 History of Present Illness HPI narrative: 73-year-old female presenting to the emergency department for evaluation for a Klonopin refill. Patient states that she does follow-up with Neurology and does take Klonopin and Keppra. Patient states that her Keppra was refilled but that she did not get her Klonopin refilled. Patient states that her neurologist, Dr Clark, at out of town until the . Patient ran out of her Klonopin yesterday Related Data Home Medications Medication Instructions Recorded Confirmed calcium carbonate 600 mg-vitamin tablet PO 03/17/21 07/29/21 D3 10 mcg (400 unit) tablet metoprolol tartrate 50 mg tablet 03/17/21 07/29/21 sertraline 50 mg tablet mg 03/17/21 07/29/21 apixaban 5 mg tablet (Eliquis) 5 mg PO BID 01/02/24 loratadine 10 mg tablet (Claritin) 10 mg PO QHS 01/02/24 Allergies Allergy/AdvReac Type Severity Reaction Status Date / Time No Known Allergies Allergy Verified 05/30/24 12:13 Review of Systems Review of Systems: All systems reviewed & are unremarkable except as noted in HPI and below PMFSH Past Medical History Medical History History of epilepsy Thrombosis Family History Family History Other Diabetes mellitus Family history of arthritis Family history of gout Family history of seizure disorder Hypertension Social History Social History (Updated 01/02/24 @ 15:10 by Erica Tucker) Social History: Caffeine-soda Smoking status: Never smoker Alcohol intake: never Substance use: never Substance use type: does not use Lack of Transportation: No Lack of Food: Often True Current Housing: Decline to Answer Concerned About Future Housing: No Difficulty Paying Gas/Electric Bills: YES Difficulty Paying for Meds: No Currently Unemployed: No Education: Grade School Difficulty w/ Childcare or Family Care: No Gender identity (if verbalized by the patient): Female Exam Narrative: APPEARANCE: Well appearing, no pain, no distress, well-nourished. HEAD: normocephalic, atraumatic. EYES: PERRLA/EOMI, conjunctivae clear. NOSE: Normal no drainage EARS:TMS clear with good light reflex. THROAT: Pharynx clear, no exudate. NECK: Supple. No adenopathy, no masses. RESPIRATORY: Airway patent, respirations nonlabored. Clear to auscultation bilaterally, no rales, rhonchi, wheezing. CARDIOVASCULAR: Regular rate and rhythm without murmurs rubs or gallops. ABDOMINAL: Soft, nontender, nondistended, normal bowel sounds MUSCULOSKELETAL: Moves all extremities. Strength/ROM intact, No edema, No calf tenderness. NEURO: Alert. Cranial nerves II through XII intact. Grossly intact SKIN: Warm, dry. Normal Color Course Course Emergency Course: Patient's Klonopin was refilled Vital Signs Vital signs: Vital Signs Temperature 97.8 F 05/30/24 12:13 Pulse Rate 84 05/30/24 12:13 Respiratory Rate 16 05/30/24 12:13 Blood Pressure 144/90 H 05/30/24 12:13 Pulse Oximetry 97 05/30/24 12:13 Oxygen Delivery Room Air 05/30/24 12:13 Temperature 97.8 F 05/30/24 12:13 Pulse Rate 84 05/30/24 12:13 Respiratory Rate 16 05/30/24 12:13 Blood Pressure 144/90 H 05/30/24 12:13 Pulse Oximetry 97 05/30/24 12:13 Oxygen Delivery Room Air 05/30/24 12:13 Medical Decision Making MDM Narrative Medical decision making narrative: 73-year-old female presents emergency department for evaluation for a medication refill. Patient states she does have plenty of her other medications including her Keppra on Eliquis but was requesting a refill on her Klonopin. Patient states she ran out of her Klonopin yesterday. Patient was given a short refill for her Klonopin. Patient was educated that this was
== END 2024-05-30 12:40 | disposition home or self-care (01) ==
LOC: ANHED 13:21
PROVIDERS: Emergency Provider Emergency Medicine; PCP Psychiatry & Neurology Neurology
DX: Z76.0 Encounter for issue of repeat prescription (principal); G40.909 Epilepsy, unspecified, not intractable, without status epilepticus
CPT/HCPCS: 99281